=== PATIENT | male | born 1975 | race Caucasian/White ===

== ENCOUNTER 2023-04-01 17:28 | Emergency (ER) | payer SELFPAY ==
[2023-04-01] MEDS ORDERED: Dexamethasone 10 MG/ML VIAL ONE (18:32)
[2023-04-01] MEDS ORDERED: Acetaminophen 500 MG TAB ONE (18:33)
[2023-04-01 18:44] LABS: SARS-CoV-2 NAA Rapid Test Not Detected (NotDetected)
[2023-04-01] MEDS ORDERED: cefTRIAXone (ROCEPHIN) 1 GM VIAL ONE (19:48)
[2023-04-01] MEDS ORDERED: Lidocaine 1% MPF 2 ML VIAL ONE (19:49)
== END 2023-04-01 20:02 | disposition home or self-care (01) ==
LOC: CSHERS 17:28
DX: J11.00 Influenza due to unidentified influenza virus with unspecified type of pneumonia (principal); Z20.822 Contact with and (suspected) exposure to COVID-19
CPT/HCPCS: 71045; 96372; J0696; J1100